=== PATIENT | female | born 1985 | race Caucasian/White ===

== ENCOUNTER 2017-09-26 05:15 | Inpatient (IN) | payer BC, OTHER, SELFPAY ==
[2017-09-26 05:28] VITALS: BMI 27.4
[2017-09-26] MEDS ORDERED: Lactated Ringer's 1,000 ML IV SCH ×2 (05:28→09:30)
[2017-09-26] MEDS ORDERED: Bicitra 30 ML UDCUP PO SCH (05:28)
[2017-09-26] MEDS ORDERED: Docusate 100 MG CAP PO PRN (05:28)
[2017-09-26] MEDS ORDERED: CEFAZOLIN/Water 2 GM/20 ML SYRINGE SLOW IVP SCH (05:28)
[2017-09-26] MEDS ORDERED: Ondansetron HCl/PF 4 MG/2 ML Vial IVP PRN ×4 (05:28→09:16)
[2017-09-26] MEDS ORDERED: Promethazine HCl 25 MG/ML VIAL IM PRN ×2 (05:28→08:57)
[2017-09-26 06:05] LABS: Hemoglobin 11.4 g/dL (12.0-16.0); Mean Corpuscular HGB CONC 35.6 g/dL (32.0-36.0); Mean Corpuscular Hemoglobin 30.7 pg (27.0-31.0); Mean Corpuscular Volume 86.2 fL (78.0-98.0); Mean Platelet Volume 10.2 fL (7.4-10.4); Platelet Count 159 thou/uL (130-400); RBC Distribution Width 13.6 % (11.5-14.5); Red Blood Cell (RBC) Count 3.72 mill/uL (4.20-5.40); White Blood Cell (WBC) Count 5.5 thou/uL (4.8-10.8)
[2017-09-26 06:47] LABS: HBSAg Index 0.15 S/CO (0-0.99); Hep B Surf Ag Non-Reactive S/CO (NonReactive)
[2017-09-26 07:02] LABS: Syphilis Antibody Nonreactive (Nonreactive); Syphilis Antibody Index 0.03 S/CO (<1.00 Non-Reactive)
[2017-09-26] MEDS ORDERED: Morphine PF 1 MG/ML SYR ONE (07:12)
[2017-09-26] MEDS ORDERED: Fentanyl 100 MCG/2 ML VIAL ONE ×2 (07:12→08:17)
[2017-09-26] MEDS ORDERED: Dexamethasone 4 mg/ml Vial ONE (07:13)
[2017-09-26] MEDS ORDERED: Oxytocin 10 UNITS/ML VIAL ONE (07:13)
[2017-09-26] MEDS ORDERED: ePHEDrine/0.9% NaCl/PF SYRINGE 50 mg/10 ml ONE (07:13)
[2017-09-26] MEDS ORDERED: Ondansetron HCl/PF 4 MG/2 ML Vial ONE (07:13)
[2017-09-26] MEDS ORDERED: Lidocaine 1% PF 5 ML VIAL ONE (07:13)
[2017-09-26] MEDS ORDERED: PHENYLEPHRINE-NS 100 MCG/ML 10 ML SYRINGE ONE (07:13)
[2017-09-26] MEDS ORDERED: Bupivacaine 0.75% W/DEXTROSE 8.25% 2 ML AMP ONE (07:13)
[2017-09-26] MEDS ORDERED: Ketorolac Tromethamine 30 MG/ML VIAL ONE (07:13)
[2017-09-26] MEDS ORDERED: Ketamine 50 MG/ML VIAL ONE (08:07)
[2017-09-26] MEDS ORDERED: Naloxone HCl 0.4 mg/ml Vial IV PRN (08:57)
[2017-09-26] MEDS ORDERED: Ketorolac Tromethamine 30 MG/ML VIAL IVP PRN (08:57)
[2017-09-26] MEDS ORDERED: diphenhydrAMINE 50 MG/ML VIAL IVP PRN (08:57)
[2017-09-26] MEDS ORDERED: Eucerin (Mineral Oil/Petrolatum,White) 30 gm Jar TOP PRN (08:57)
[2017-09-26] MEDS ORDERED: Meperidine HCl/PF 25 MG/ML VIAL SLOW IVP PRN (08:57)
[2017-09-26] MEDS ORDERED: HYDROmorphone 2 MG/ML VIAL SLOW IVP PRN (08:57)
[2017-09-26] MEDS ORDERED: Naloxone HCl 0.4 mg/ml Vial IVP PRN ×2 (08:57)
[2017-09-26] MEDS ORDERED: Promethazine HCl 25 MG SUPP PR PRN (08:57)
[2017-09-26] MEDS ORDERED: Communication Order-Pharmacy FS SCH (09:00)
[2017-09-26] MEDS ORDERED: Ketorolac Tromethamine 30 MG/ML VIAL IVP SCH (09:00)
[2017-09-26] MEDS ORDERED: Lanolin Ointment 7 GM TUBE TOP PRN (09:16)
[2017-09-26] MEDS ORDERED: diphenhydrAMINE 25 MG CAP PO PRN (09:16)
[2017-09-26] MEDS ORDERED: Zolpidem Tartrate 5 MG TAB PO PRN (09:16)
[2017-09-26] MEDS ORDERED: Acetaminophen 325 MG TAB PO PRN (09:16)
[2017-09-26] MEDS ORDERED: Bisacodyl 10 MG SUPP PR PRN (09:16)
[2017-09-26] MEDS ORDERED: NS / Oxytocin 40 units/1000ml 1,000 ML IV SCH (09:30)
[2017-09-26] MEDS: Ibuprofen 800 MG TAB PO SCH ×2 (14:06→22:39)
[2017-09-26] MEDS ORDERED: HYDROcodone/Acetaminophen 5/325 mg Tablet PO PRN ×2 (21:00)
[2017-09-26] MEDS ORDERED: Meperidine HCl/PF 25 MG/ML VIAL IM PRN (21:00)
[2017-09-26] MEDS: Ferrous Sulfate 325 MG TAB PO SCH (22:39)
[2017-09-26] MEDS: Docusate Calcium (SURFAK) 240 MG CAP PO SCH (22:39)
[2017-09-27] MEDS: Ibuprofen 800 MG TAB PO SCH ×3 (03:46→21:51)
[2017-09-27 05:58] LABS: Hemoglobin 10.5 g/dL (12.0-16.0); Mean Corpuscular HGB CONC 34.7 g/dL (32.0-36.0); Mean Corpuscular Hemoglobin 30.6 pg (27.0-31.0); Mean Corpuscular Volume 88.2 fL (78.0-98.0); Mean Platelet Volume 10.7 fL (7.4-10.4); Platelet Count 136 thou/uL (130-400); RBC Distribution Width 13.6 % (11.5-14.5); Red Blood Cell (RBC) Count 3.42 mill/uL (4.20-5.40); White Blood Cell (WBC) Count 6.9 thou/uL (4.8-10.8)
[2017-09-27] MEDS ORDERED: Adacel (T-DAP) 0.5 ML VIAL IM ONE (09:00)
[2017-09-27] MEDS: Prenatal Vitamin 1 TAB PO SCH (09:01)
[2017-09-27] MEDS: Simethicone Chewable 80 MG TAB PO PRN ×2 (09:01→20:48)
[2017-09-27] MEDS: Docusate Calcium (SURFAK) 240 MG CAP PO SCH ×2 (09:01→21:58)
[2017-09-27] MEDS: Ferrous Sulfate 325 MG TAB PO SCH ×2 (09:05→19:35)
[2017-09-28] MEDS: Ibuprofen 800 MG TAB PO SCH ×2 (05:42→14:17)
[2017-09-28 07:59] VITALS: BP 110/67; TEMP 97.8
[2017-09-28] MEDS: Prenatal Vitamin 1 TAB PO SCH (08:54)
[2017-09-28] MEDS: Docusate Calcium (SURFAK) 240 MG CAP PO SCH (08:54)
[2017-09-28] MEDS: Ferrous Sulfate 325 MG TAB PO SCH (09:14)
--- NOTE | 2017-10-01 07:29 | OP ---
DATE OF PROCEDURE: 09/26/2017 ATTENDING STAFF PHYSICIAN: Fahad Daugherty M.D. SURGEONS: 1. Fahad Daugherty M.D. 2. Ange Lobo DO with the [facility]. LEGAL NURSE CONSULTANT SURGEON: Sridevi Valero M.D. PREOPERATIVE DIAGNOSES: 1. Term intrauterine at 39 weeks. 2. Prior x3. POSTOPERATIVE DIAGNOSES: 1. Term intrauterine at 39 weeks. 2. Prior x3. PROCEDURE PERFORMED: Repeat low transverse section. ANESTHESIA: Spinal catheterization. FINDINGS: 1. A vigorous male infant, 7 pounds 1 ounce, Apgars 8 and 9. 2. Normal uterus, tubes, and ovaries. COMPLICATIONS: None. SPECIMENS REMOVED: Cord blood. ESTIMATED BLOOD LOSS: 600 mL DESCRIPTION OF PROCEDURE: After thorough consent and counseling, Ms. Poppy Brambila was taken to t operating room and adequate level of anesthesia was obtained by spinal catheterization. The patie nt was prepped and draped in the usual sterile fashion for abdominal surgery. A Salazar was placed in the bladder, which was noted to be draining clear urine. Attention was then turned performing the re peat low transverse section. A Pfannenstiel incision was made and the old scar was excised. The incision was carried sharply to [facility] fascia, which was also sharply incised. The midline was identified and the rectus muscles were re tracted laterally. The abdominal peritoneal cavity was entered with usual safeguards carried out. A retractor was placed and a bladder flap was created on the vesicouterine peritoneum. A low transver se incision was made on the uterus. Upon entering the amniotic sac, a copious amount of clear amniot ic fluid was visualized. The was noted to be vertex presentation in the occiput anterior posi tion, still high in the pelvis. Head was delivered and the baby was bulb suctioned on the abdomen. Shoulders and body were then delivered in an atraumatic fashion. The cord was doubly clamped and cut and the was handed to the neonatology team in attendance for the delivery. The was a vigorous viable male weighing 7 pounds 1 ounces with Apgars of 8 and 9 obtained at 1 and 5 minutes re spectively. Cord blood was obtained. Placenta was manually removed from the uterus. The uterus was exteriorized and good tone was noted. The low transverse incision was closed with a running locking ligature of #1 chromic. A second imbricating layer was placed to facilitate strength and hemostasis . The vesicouterine peritoneum was reapproximated to the lower segment with a running ligature of 3- 0 Monocryl suture. Good tone and hemostasis was then noted. The uterus, fallopian tubes and ovaries were inspected and noted to be normal. The posterior cul-de-sac was cleared of clot and fluid. The uterus was returned to the abdomen and good tone and hemostasis was appreciated. Lap, sponge, and n eedle counts were correct. The peritoneum was then closed with a running ligature of 2-0 Vicryl sutu re. The rectus muscles were reapproximated in the midline with interrupted ligatures of both 2-0 Scottie ryl suture and #1 chromic suture. The fascia was then closed with 2 ligatures of 0 Vicryl suture, wh ich were tied in the midline. Good fascial integrity was appreciated. The incision was irrigated wi th copious amount of warm normal saline. Hemostasis was obtained with Bovie cauterization. The subc utaneous tissue was closed with interrupted ligatures of 2-0 plain. The skin was then closed with a subcuticular stitch of 4-0 Monocryl. Lap, sponge, and needle counts were correct x3. Estimated bloo d loss during the surgical procedure was approximately 600 mL. The patient was awakened and taken to recovery room in good condition. Immediately following surgery , the patient and family were made aware of the surgical procedure and operative findings and questio ns were answered to their satisfaction. Mother and baby doing well postoperatively.
== END 2017-09-28 15:15 | disposition home or self-care (01) | DRG 766 ==
LOC: L&D 05:15 → 3SW 11:17
PROVIDERS: ADMIT Obstetrics & Gynecology; ATTEND Obstetrics & Gynecology
PROC: 10D00Z1 Extraction of Products of Conception, Low, Open Approach (ICD-10-PCS; principal; 2017-09-26)
DX: O34.211 Maternal care for low transverse scar from previous cesarean delivery (principal); N85.8 Other specified noninflammatory disorders of uterus; Z3A.39 39 weeks gestation of pregnancy; Z37.0 Single live birth
CPT/HCPCS: 36415; 51702; 85027; 86780; 86850; 86900; 86901; 87340; J1100; J1885; J2001; J2274; J2405; J2590; J3010; J3490